=== PATIENT | female | born 1955 | race Caucasian/White ===

== ENCOUNTER → 2020-08-21 | Outpatient (CLI) | payer MEDICAID, MEDICARE ==
[2015-01-12 10:29] VITALS: BP 147/75
[~2020-08-21] MED LIST: ACLI400A3 IH; ALBU2.5V8 IH; ALPR2TAB2 PO; ALPR2TAB5 PO; BUDE10.2 IH; DOXY100T PO; LIPA1CAP11 PO; PANT40TA3 PO; ROFL500T7 PO; SERT100T PO; TRAM200T20 PO; [UNRECOGNIZED DRUG - OTHER]
--- NOTE | 2020-08-21 16:34 | RAD ---
CT THORAX WO History: Reason: DYSPNEA. CHRONIC BRONCHITIS AND EMPHYSEMA. / Spl. Instructions: / History: Comparison: CT angiogram chest 07/22/2019. Technique: Noncontrast CT of the chest. Findings: Assessment is limited by lack of IV contrast. Aorta and Great Vessels: No aneurysm of the aortic arch or thoracic aorta is seen. Moderate aortic ca lcification. Thyroid: No significant abnormalities. Mediastinum and kofi: Prominent AP window mediastinal lymph node measures 1 cm short axis, similar to comparison. Esophagus: The visualized esophagus is normal. Heart: Normal heart size. Trace pericardial fluid. Minimal coronary calcification. Trachea: Mild right middle lobe bronchiectasis. Lungs: Moderate emphysematous change. Minimal medial lingula and right middle lobe atelectatic scarri ng. No significant pulmonary nodules. No airspace consolidation. Pleural Space: There is no pneumothorax or pleural effusion. Upper Abdomen: Cholecystectomy clips. Osseous Structures and Soft Tissues: Within normal limits for age. Impression: 1. Moderate emphysematous change. Mild bronchiectasis in the right middle lobe. 2. Stable minimal atelectatic scarring in the medial right middle lobe and lingula. Otherwise, no ai rspace consolidation. ------ Exposure: One or more of the following individualized dose reduction techniques were utilized for thi s examination: 1. Automated exposure control 2. Adjustment of the mA and/or kV according to patient size 3. Use of iterative reconstruction technique. Electronically signed by: Jefferson Bray MD (08/21/2020 4:32 PM) [facility]
== END ==
LOC: CT 09:57
PROVIDERS: ATTEND Internal Medicine Pulmonary Disease
DX: J43.9 Emphysema, unspecified (principal); J47.9 Bronchiectasis, uncomplicated; J98.4 Other disorders of lung; I70.0 Atherosclerosis of aorta; I25.10 Atherosclerotic heart disease of native coronary artery without angina pectoris; J42 Unspecified chronic bronchitis
CPT/HCPCS: 71250